=== PATIENT | female | born 1960 | race Two or more races ===

== ENCOUNTER → 2017-07-29 | Outpatient (CLI) | payer MEDICARE, OTHER ==
--- NOTE | ~2017-07-29 | MY29 ---
[facility] A Service of [facility] RADIOLOGY TEXT RESULTS PATIENT: JENNIE MAE LOCATION: [facility] : 64 UNIT #: [id number] AGE: [address]: RHIANNON COOK APRN SEX: F ORDER DR: [id number] [facility] [address] [place], [place] [address] [id number] O MR#: [id number] Acc #: [id number] NAME: JENNIE MAE : 1960 SEX: F STUDY DATE/TIME: 07/29/2017 12:32 UNIT: [facility] ROOM: STUDY DESCRIPTION: [facility] SCREENING W/ CAD BILAT Attending Physician: Felicita Cook M.D. Ordering Physician: Felicita Cook M.D. Primary Care Physician: Julain Quezada M.D. MEDICAL IMAGING REPORT This report is preliminary unless electronic signature is present EXAM Bilateral digital screening exam with CAD. COMPARISON None available. The patient does not remember where her prior mammograms were performed in [place]. She denies personal or family history of breast cancer and underwent reduction mammoplasty in 2006. FINDINGS There are scattered fibroglandular densities. There are benign dystrophic calcifications in the 12 o'clock and 10 o'clock position localizing to the left anterior third of the left breast, most consistent with fat necrosis. Similar dystrophic calcifications are seen in the anterior third of the right breast with an adjacent benign oil cyst. There are no suspicious findings in either breast on this effective baseline exam. IMPRESSION 1. No mammographic evidence of malignancy on this effective baseline exam. If prior mammograms can be obtained for comparison, addendum to this report could be performed. Otherwise, continued annual screen mammography would be recommended. 2. Benign changes of fat necrosis in both breasts likely related to history of reduction mammoplasty. Patients over the age of 40 are entered into a reminder system with target due date for the next mammogram. A result letter will also be sent to the patient. BIRADS: 2 Benign findings. [facility] A Service of [facility] RADIOLOGY TEXT RESULTS PATIENT: JENNIE MAE LOCATION: [facility] : 64 UNIT #: [id number] AGE: [address]: RHIANNON COOK APRN SEX: F ORDER DR: Dictated by... Lorenzo Dave M.D. THIS IS AN ELECTRONICALLY VERIFIED REPORT Lorenzo Dave M.D. at 07/31/2017 9:40 PM Bebe TD: 07/29/2017 15:43 JOB #: [id number] MEDICAL IMAGING REPORT Page 1 of 1 COPY
== END | disposition home or self-care (01) ==
LOC: CWCC 12:01 → EDBD 12:01 → CWCC 13:45
DX: Z12.31 Encounter for screening mammogram for malignant neoplasm of breast (principal); N64.1 Fat necrosis of breast; Z98.890 Other specified postprocedural states
CPT/HCPCS: G0202